=== PATIENT | female | born 1945 | race Caucasian/White ===

== ENCOUNTER 2018-12-14 08:28 | Outpatient (CLI) | payer MEDICARE ==
[~2018-12-14 08:28] MED LIST: ACET-812 PO; COU7.5T PO; CYAN25006 SL; DILT120C62 PO; ERGO400C PO; FLUO20CA39 PO; GABA-532 PO; LEVO75TA PO; OMEP20TA5 PO; OPTIFIBER PO; SOTA80TA PO; WARF-55 PO; ZOLP10TA5 PO
== END 2018-12-14 23:59 | disposition home or self-care (01) ==
LOC: RT 08:28
PROVIDERS: ATTEND Internal Medicine Critical Care Medicine
DX: J98.4 Other disorders of lung (principal); G47.30 Sleep apnea, unspecified; E66.9 Obesity, unspecified; J84.10 Pulmonary fibrosis, unspecified; J47.9 Bronchiectasis, uncomplicated; I10 Essential (primary) hypertension; Z88.5 Allergy status to narcotic agent; Z88.8 Allergy status to other drugs, medicaments and biological substances; Z90.49 Acquired absence of other specified parts of digestive tract; Z96.652 Presence of left artificial knee joint; Z90.710 Acquired absence of both cervix and uterus
CPT/HCPCS: 94618

== ENCOUNTER 2019-03-17 01:48 | Outpatient (CLI) | payer MEDICARE | END 2019-03-17 23:59 | disposition home or self-care (01) | LOC: DIABETIC 01:48 | DX: E11.9 Type 2 diabetes mellitus without complications (principal); Z79.84 Long term (current) use of oral hypoglycemic drugs; Z79.899 Other long term (current) drug therapy; Z88.5 Allergy status to narcotic agent | CPT/HCPCS: G0108 ==

== ENCOUNTER 2019-04-30 04:55 | Outpatient (CLI) | payer MEDICARE | END 2019-04-30 23:59 | disposition home or self-care (01) | LOC: DIABETIC 04:55 | DX: E11.9 Type 2 diabetes mellitus without complications (principal); Z79.84 Long term (current) use of oral hypoglycemic drugs; Z79.899 Other long term (current) drug therapy; Z88.8 Allergy status to other drugs, medicaments and biological substances; Z88.5 Allergy status to narcotic agent | CPT/HCPCS: G0108 ==

== ENCOUNTER 2019-08-18 03:11 | Outpatient (CLI) | payer MEDICARE | END 2019-08-18 23:59 | disposition home or self-care (01) | LOC: DIABETIC 03:11 | DX: E11.9 Type 2 diabetes mellitus without complications (principal); I10 Essential (primary) hypertension; Z79.84 Long term (current) use of oral hypoglycemic drugs; Z79.899 Other long term (current) drug therapy; Z88.8 Allergy status to other drugs, medicaments and biological substances | CPT/HCPCS: G0108 ==